=== PATIENT | male | born 1950 | race Caucasian/White ===

== ENCOUNTER 2023-12-17 18:12 | Emergency (ER) | payer MEDICAID, MEDICARE, OTHER ==
[~2023-12-17] VITALS: Ht 172.7 cm; Wt 59.0 kg
[2023-12-17 18:20] VITALS: TEMP 98.8
[2023-12-17] MEDS ORDERED: KETOROLAC TROMETHAMINE INJ 30 MG/ML VIAL ONE (21:53)
[2023-12-17] MEDS: KETOROLAC TROMETHAMINE INJ 60 MG/2 ML VIAL IM ONE (21:57)
[2023-12-17] MEDS ORDERED: KETO10TA2 PO (22:19)
[2023-12-17 22:56] VITALS: BP 120/70; O2SAT 97
== END 2023-12-17 22:56 | disposition home or self-care (01) ==
LOC: ER 18:15
DX: G89.29 Other chronic pain (principal); M25.552 Pain in left hip
CPT/HCPCS: 99283; 96372; 73503; J1885; 73502

== ENCOUNTER 2025-03-22 15:17 | Inpatient (IN) | payer MEDICAID, MEDICARE ==
[~2025-03-22] VITALS: Ht 165.1 cm; Wt 54.0 kg
[~2025-03-22 15:17] MED LIST: KETO10TA2 PO
[2025-03-22 16:57] LABS: PLATELET COUNT (AUTO) 426 K/uL (150-450); RED BLOOD CELL COUNT(AUTO) 4.08 MIL/uL (4.5-6.0); RED CELL DISTRIBUTION WIDTH 19.1 % (11.5-15.0); WHITE BLOOD COUNT (AUTO) 12.4 K/uL (4.3-11.0)
[2025-03-22 17:11] LABS: ASPARTATE AMINOTRANSFERASE 41 U/L (15-37); CALCIUM, SERUM 8.3 mg/dL (8.5-10.1); CREATININE 0.6 mg/dL (0.6-1.3); SODIUM SERUM 140 mmol/L (136-145); TOTAL PROTEIN, SERUM 7.2 g/dL (6.4-8.2); UREA NITROGEN, BLOOD 22 mg/dL (7-18)
[2025-03-22 17:13] LABS: ALCOHOL, BLOOD < 3 mg/dL (0-10)
[2025-03-22 19:15] LABS: INR 1.02 (0.91-1.10)
[2025-03-22] MEDS ORDERED: ONDANSETRON HCL/PF 4 MG/2 ML VIAL IVP PRN (21:30)
[2025-03-22] MEDS ORDERED: ACETAMINOPHEN 325 MG TABLET PO PRN (21:30)
[2025-03-22] MEDS ORDERED: MAG HYDROX/AL HYDROX/SIMETH 30 ML UDC PO PRN (21:30)
[2025-03-22] MEDS ORDERED: Z GUARD REMEDY 4 OZ OINT TP PRN (21:30)
[2025-03-22] MEDS ORDERED: MAGNESIUM HYDROXIDE 30 ML UDC PO PRN (21:30)
[2025-03-22] MEDS ORDERED: QUETIAPINE FUMARATE 25 MG TABLET PO PRN (21:30)
[2025-03-22 21:33] VITALS: BP 124/83; TEMP 98.2; O2SAT 97
[2025-03-22] MEDS: IV NS 0.9% 1,000 ML IV PRN (22:14)
[2025-03-22] MEDS: HYDROCODONE/APAP 5/325MG TABLET PO PRN (22:14)
[2025-03-22] MEDS: ENOXAPARIN SODIUM 40 MG/0.4 ML DISP.SYRIN SQ SCH (22:28)
[2025-03-23 07:00] VITALS: BP 138/90; TEMP 97.9; O2SAT 96
[2025-03-23 07:28] LABS: PLATELET COUNT (AUTO) 358 K/uL (150-450); RED BLOOD CELL COUNT(AUTO) 3.85 MIL/uL (4.5-6.0); RED CELL DISTRIBUTION WIDTH 19.0 % (11.5-15.0); WHITE BLOOD COUNT (AUTO) 9.1 K/uL (4.3-11.0)
[2025-03-23] MEDS: PANTOPRAZOLE 40 MG TABLET.DR PO SCH (07:37)
[2025-03-23 07:57] LABS: CALCIUM, SERUM 8.1 mg/dL (8.5-10.1); CREATININE 0.6 mg/dL (0.6-1.3); PHOSPHORUS 3.9 mg/dL (2.5-4.9); SODIUM SERUM 142.0 mmol/L (136-145); UREA NITROGEN, BLOOD 26.0 mg/dL (7-18)
[2025-03-23] MEDS: THIAMINE HCL 100 MG TABLET PO SCH (08:19)
[2025-03-23] MEDS: AMLODIPINE BESYLATE 5 MG TABLET PO SCH (08:19)
[2025-03-23] MEDS: FOLIC ACID 1 MG TABLET PO SCH (08:19)
[2025-03-23 09:01] LABS: LDL 87.0 mg/dL (0-99)
[2025-03-23] MEDS ORDERED: CYAN100096 PO (09:03)
[2025-03-23] MEDS ORDERED: ACET-3102 PO (09:03)
[2025-03-23] MEDS ORDERED: POLY17PO4 PO (09:03)
[2025-03-23] MEDS ORDERED: AMLO-212 PO (09:03)
[2025-03-23] MEDS ORDERED: ZINC220C6 PO (09:03)
[2025-03-23] MEDS ORDERED: THIA100T74 PO (09:03)
[2025-03-23] MEDS ORDERED: BUTT PASTE TP (09:03)
[2025-03-23] MEDS ORDERED: LORA-258 PO (09:03)
[2025-03-23] MEDS ORDERED: MULT-213 PO (09:03)
[2025-03-23] MEDS ORDERED: ARGI1POW13 PO (09:03)
[2025-03-23] MEDS ORDERED: ERGO500093 PO (09:03)
[2025-03-23] MEDS ORDERED: LACT1CAP72 PO (09:03)
[2025-03-23] MEDS ORDERED: ASCO500T20 PO (09:03)
[2025-03-23] MEDS ORDERED: QUET25TA PO (09:03)
[2025-03-23] MEDS ORDERED: FOLI0.4T6 PO (09:03)
[2025-03-23] MEDS ORDERED: COLL30OI TP (09:03)
[2025-03-23] MEDS: HYDROCODONE/APAP 10/325MG TABLET PO PRN (09:43)
[2025-03-23] MEDS ORDERED: LORAZEPAM 0.5 MG TABLET PO PRN (11:30)
[2025-03-23 15:00] VITALS: BP 135/81; TEMP 98.4; O2SAT 94
[2025-03-23 20:00] VITALS: BP 151/78; TEMP 97.7; O2SAT 96
[2025-03-23] MEDS: QUETIAPINE FUMARATE 25 MG TABLET PO SCH (21:45)
[2025-03-24 08:00] VITALS: BP 137/90; TEMP 98.1; O2SAT 96
[2025-03-24] MEDS ORDERED: AMLODIPINE BESYLATE 5 MG TABLET PO SCH (09:00)
[2025-03-24] MEDS ORDERED: THIAMINE HCL 100 MG TABLET PO SCH (09:00)
[2025-03-24 16:00] VITALS: BP 128/83; TEMP 98.1; O2SAT 96
[2025-03-24 20:00] VITALS: BP 140/88; TEMP 97.5; O2SAT 95
[2025-03-25 08:00] VITALS: BP 135/80; TEMP 98.1; O2SAT 95
[2025-03-25 16:00] VITALS: BP 130/84; TEMP 97.9; O2SAT 96
[2025-03-25 20:34] VITALS: BP 149/90; TEMP 97.3; O2SAT 96
[2025-03-26 08:00] VITALS: BP 144/87; TEMP 97.9; O2SAT 94
[2025-03-26 11:07] LABS: *SPE A/G RATIO 1.0 (0.7-1.7); *SPE ALBUMIN 3.2 g/dL (2.9-4.4); *SPE ALPHA-1-GLOBULIN 0.2 g/dL (0.0-0.4); *SPE ALPHA-2-GLOBULIN 0.9 g/dL (0.4-1.0); *SPE BETA GLOBULIN 0.9 g/dL (0.7-1.3); *SPE GLOBULIN, TOTAL 3.2 g/dL (2.2-3.9); *SPE M-SPIKE Not Observed g/dL (Not Observed); *SPE PROTEIN TOTAL 6.4 g/dL (6.0-8.5); *SPEGAMMA GLOBULIN 1.3 g/dL (0.4-1.8)
[2025-03-26 16:00] VITALS: BP 131/86; TEMP 97.3; O2SAT 95
[2025-03-26 20:00] VITALS: BP 139/84; TEMP 97.9; O2SAT 95
[2025-03-27 09:59] VITALS: BP 137/89; TEMP 97; O2SAT 96
[2025-03-27 10:08] VITALS: BP 135/89
[2025-03-27] MEDS ORDERED: ENOX40DI SUBCUT (13:30)
== END 2025-03-27 17:10 | DRG 340 ==
LOC: ER 15:37 → MED 20:49
PROVIDERS: ADMIT Nurse Practitioner Acute Care; ATTEND Nurse Practitioner Acute Care
DX: M84.452A Pathological fracture, left femur, initial encounter for fracture (principal); D63.8 Anemia in other chronic diseases classified elsewhere; I10 Essential (primary) hypertension; G89.29 Other chronic pain; Y92.9 Unspecified place or not applicable; W18.30XA Fall on same level, unspecified, initial encounter; R79.89 Other specified abnormal findings of blood chemistry; Y92.129 Unspecified place in nursing home as the place of occurrence of the external cause; Z96.642 Presence of left artificial hip joint; Z88.8 Allergy status to other drugs, medicaments and biological substances; Z79.899 Other long term (current) drug therapy; L84 Corns and callosities; Z98.890 Other specified postprocedural states
CPT/HCPCS: 36415; 71045-TC; 73502; 80048-TC; 80061-TC; 80076-TC; 83735-TC; 84100-TC; 84155; 84165; 84443-TC; 85025-TC; 85730-TC; 87081-TC; 93307-TC; 97110-TC; 97116-TC; 97530-TC; 97535-TC; A4223; A6403; G0378; G0480; J1650; J7030